=== PATIENT | female | born 1960 | race Caucasian/White ===

== ENCOUNTER 2017-12-01 17:25 | Inpatient (IN) ==
[2017-12-01] MEDS ORDERED: traMADol 50 MG TABLET PO PRN (20:48)
[2017-12-01] MEDS ORDERED: Naloxone 0.4 MG/ML INJ IVP PRN (20:48)
[2017-12-01] MEDS ORDERED: Acetaminophen 325 MG TABLET PO PRN (20:48)
[2017-12-01] MEDS ORDERED: Albuterol 2.5 MG/3 ML NEBULIZER IH PRN (20:50)
[2017-12-01] MEDS ORDERED: D5% in Water 1,000 ML IVC PRN (20:52)
[2017-12-01] MEDS ORDERED: *HR* Dextrose 50 % in Water (Syg) 50 ML SYRINGE IVP PRN (20:52)
[2017-12-01] MEDS ORDERED: Dextrose Gel 15 GM/37.5 ML TUBE PO PRN ×2 (20:52)
[2017-12-01] MEDS ORDERED: Insulin LISPRO 300 UNITS/3 ML VIAL SQ SCH (21:00)
--- NOTE | 2017-12-01 21:25 | Internal Med History&Physical ---
Date of Encounter: 12/01/17 Time of Encounter: 21:52 Assessment and Plan (1) COPD exacerbation Current visit: Yes Status: Acute Duonebs q4h, Albuterol q2hr prn, levaquin daily, prednisone daily Patient is not wheezing at time of eval and is in no form of distress CXR and CTA from referral center with no PNA or PE Continue O2 by NC, BiPAP at night Check respiratory panel, patient's symptoms dates back to 11/21 (2) Hypoxia Current visit: Yes Status: Acute as above Will need O2 qualification prior to discharge (3) Diabetes Current visit: Yes Status: Chronic hold po meds, including metformin Sliding scale insulin FS ACHS ADA diet check A1C a.m Qualifiers: Diabetes mellitus type: type 2 Diabetes mellitus ferry terminal supervisor insulin use: without ferry terminal supervisor use Diabetes mellitus complication status: with neurologic complications Diabetes mellitus complication detail: with unspecified neuropathy Qualified Code(s): E11.40 - Type 2 diabetes mellitus with diabetic neuropathy, unspecified (4) CHF (congestive heart failure) Current visit: Yes Status: Chronic euvolemic on exam Continue home dose of lasix Qualifiers: Heart failure type: diastolic Heart failure chronicity: chronic Qualified Code(s): I50.32 - Chronic diastolic (congestive) heart failure (5) Obesity Current visit: Yes Status: Chronic Qualifiers: Obesity type: unspecified obesity type Obesity classification: adult class 3 (BMI >= 40) Serious obesity comorbidity presence: with serious comorbidity Body mass index: BMI 50.0-59.9 Qualified Code(s): E66.9 - Obesity, unspecified; Z68.43 - Body mass index (BMI) 50-59.9 , adult; Z68.43 - Body mass index (BMI) 50-59.9 , adult; Z68.43 - Body mass index (BMI) 50-59.9 , adult; Z68.43 - Body mass index (BMI) 50-59.9 , adult (6) MOON (obstructive sleep apnea) Current visit: Yes Status: Chronic BiPAP at bedtime and during naps Internal Medicine - H&P: HPI Chief complaint: Shortness of breath Admitted From: Hospital to Hospital Transfer Plans for Post Hospital Care: Home History of present illness: Ms. Ahmadi is a 57 year old female with PMH of MOON on CPAP, COPD not on home O2, Morbid Obesity, DM, , CHFpEF, HTN She presented to an outside facility for complaints of shortness of breath, diaphoresis following upper respiratory tract symptoms for the past week. She had presented to her primary care physician and received a full dose of amoxicillin without any improvement. She continued to have fatigue and chills. She continued to have cough with clear sputum production. She denies fever. She presented to urgent care where she was found to be hypoxic with oxygen saturation 70% this morning. She said was sent as a when she received steroids intravenously, oxygen via mask and therapeutic dose of Lovenox for suspected pulmonary embolism. She denies gastrointestinal, urinary, or neurologic symptoms. During eval, she is sitting upright in a chair in no form of distress, O2 sat maintained at 94-95% on 3L O2. She is not in distress and is able to complete her sentences. She reports some clinical improvement, no known medication allergies. Paper charts from [facility] reviewed: Lactate 1.8 (2.0 on presentation), CBC WNL, Chem WNL, ABG with PH 7.35, PCO2 46, PO2 64, D-dimer elevated at 2017. CTA does not show Pulmonary embolism, troponin negative X3, CXR with evidence of interstitial lung changes/scarring Past Med Surg Social Fam HX - Past Medical History Medical history: CHF, COPD, diabetes, hypertension Psychiatric history: no psych history - Past Surgical History Surgical History: appendectomy - Social History Smoking Status: Current every day smoker Smokeless Tobacco Status: No Alcohol use: none Drug use: none Internal Medicine - H&P: Meds Glimepiride [Amaryl] 1 mg PO HS 04/08/15 [History] Lisinopril [Zestril] 20 mg PO DAILY 04/08/15 [History] Simvastatin [Zocor] 20 mg PO DAILY 04/08/15 [History] Sitagliptin Phos/Metformin HCl [Janumet 50-1,000 mg Tablet] 1 each PO HS [History] Acetaminophen/Butalbital/Caffe [Fioricet] 1 each PO Q6HR #15 tablet 03/01/17 [Rx ] Budesonide/Formoterol 160/4.5 [Symbicort 160/4.5] 2 puff IH BIDR 03/01/17 [ History] Dapagliflozin Propanediol [Farxiga] 5 mg PO DAILY 03/01/17 [History] Furosemide [Lasix] 10 mg PO DAILY 03/01/17 [History] Gabapentin [Neurontin] 100 mg PO TID 03/01/17 [History] Montelukast [Singulair] 10 mg PO DAILY 03/01/17 [History] PredniSONE [Deltasone] 20 mg PO DAILY #12 tablet 03/01/17 [Rx] 3 Allergy/AdvReac Type Severity Reaction Status Date / Time No Known Allergies Allergy Verified 03/01/17 14:54 All Systems PM: A 10-system review of systems was performed and is negative for pertinent findings except as documented above in the HPI. - Constitutional Constitutional: chills, fatigue, malaise, no fever(s) - EENT Eyes: no change in vision, no discharge, no pain, no photophobia Ears: no ear discharge, no ear pain, no tinnitus Nose, mouth and throat: no dysphagia, no nasal discharge, no neck pain, no sore throat - Cardiovascular Cardiovascular ROS IM: as per HPI - Respiratory Respiratory: as per HPI - Gastrointestinal Gastrointestinal: no abdominal pain, no diarrhea, no hematemesis, no hematochezia, no melena, no nausea, no vomiting - Genitourinary Genitourinary: no change in urinary stream, no dysuria, no flank pain, no hematuria - Musculoskeletal Musculoskeletal ROS IM: no numbness, no tingling - Integumentary Integumentary IM: no rash, no unusual bruising - Neurological Neurological ROS: as per HPI - Hematologic/Lymphatic Hematologic/Lymphatic: no easy bruising - Constitutional Vitals: Temp Pulse Resp BP Pulse Ox 99.5 F 94 20 110/57 92 12/01/17 20:41 12/01/17 20:41 12/01/17 20:41 12/01/17 20:41 12/01/17 20:41 General appearance: Present: A&O X 3, pleasant, no acute distress - Head Head exam: Present: atraumatic, normocephalic - Eye Eye exam: Present: PERRL, conjuntiva pink, sclera anicteric Pupils: Present: PERRL - Neck Neck exam general surgery: Present: supple, trachea midline. Absent: lymphadenopathy - Respiratory Respiratory exam: Present: CTAB. Absent: accessory muscle use, rales, rhonchi, wheezes - Cardiovascular Cardiovascular exam: Present: RRR, +S1, +S2. Absent: diastolic murmur, gallop, rubs, systolic murmur - GI/Abdominal GI/Abdominal exam: Present: normal bowel sounds, soft, no peritoneal signs. Absent: distended, tenderness - Extremities Exam Extremities exam: Present: warm, radial pulses palpable and symmetrical. Absent : calf tenderness, cyanotic, pedal edema Additional comments: chronic venous stasis changes - Neurological Exam Neurological exam: Present: alert, CN II-XII intact, oriented X3, no focal deficits. Absent: pronater drift, facial droop, speech deficit - Skin Skin exam: Present: dry, intact
[2017-12-01] MEDS: *HR* Heparin 5,000 UNIT/ML VIAL SQ SCH (22:52)
[2017-12-01] MEDS: Ipratropium/Albuterol Neb 3 ML IH SCH (23:37)
[2017-12-02] MEDS: *HR* OxyCODONE Immed Rel 5 MG TABLET PO PRN ×2 (02:26→22:49)
[2017-12-02] MEDS: Ipratropium/Albuterol Neb 3 ML IH SCH ×4 (04:22→23:18)
[2017-12-02 06:05] LABS: Basophils % 0.2 %; Hematocrit 39.3 % (35.3-44.9); Hemoglobin 12.1 g/dL (11.5-15.4); Immature Granulocytes % 0.8 % (0-4); Lymphocytes # 0.6 K/mcL (0.6-4.6); Lymphocytes % 10.3 %; Mean Corpuscular HGB Conc 30.8 g/dL (31.6-35.5); Mean Corpuscular Hemoglobin 31.2 pg (28.0-33.3); Mean Corpuscular Volume 101.3 fL (83.0-100.0); Mean Platelet Volume 10.8 fL (9.4-12.4); Monocytes # 0.5 K/mcL (0.0-1.3); Monocytes % 10.2 %; Neutrophils # 4.2 K/mcL (1.6-8.9); Platelet Count 162 K/mcL (140-400); Red Blood Count 3.88 M/mcL (3.82-4.97); Red Cell Distribution Width 15.1 % (11.5-14.5); Segmented Neutrophils % 78.5 %
[2017-12-02 06:14] LABS: Adenovirus Not Detected (Not Detect); Bordetella Pertussis Not Detected (Not Detect); Chlamydophila pneumoniae Not Detected (Not Detect); Coronavirus 229E Not Detected (Not Detect); Coronavirus HKU1 Not Detected (Not Detect); Coronavirus NL63 Not Detected (Not Detect); Coronavirus OC43 Not Detected (Not Detect); Human Metapneumovirus Not Detected (Not Detect); Human Rhinovirus/Enterovirus Not Detected (Not Detect); Influenza A Subtype 2009 H1 Not Detected (Not Detect); Influenza A Untypeable Not Detected (Not Detect); Influenza B ***DETECTED*** (Not Detect); Mycoplasma pneumoniae Not Detected (Not Detect); Parainfluenza Virus 1 Not Detected (Not Detect); Parainfluenza Virus 2 Not Detected (Not Detect); Parainfluenza Virus 3 Not Detected (Not Detect); Parainfluenza Virus 4 Not Detected (Not Detect); Respiratory Syncytial Virus Not Detected (Not Detect)
[2017-12-02 06:32] LABS: Calcium 9.1 mg/dL (8.6-10.3); Potassium 5.1 mEq/L (3.5-5.1)
[2017-12-02] MEDS: *HR* Heparin 5,000 UNIT/ML VIAL SQ SCH ×3 (06:35→21:40)
[2017-12-02] MEDS ORDERED: Insulin LISPRO 300 UNITS/3 ML VIAL SQ SCH (07:30)
[2017-12-02 08:18] LABS: Estimated Average Glucose 177 mg/dl; Hemoglobin A1C 7.8 %
[2017-12-02] MEDS: Furosemide 20 MG TABLET PO SCH (08:31)
[2017-12-02] MEDS: Gabapentin 100 MG CAPSULE PO SCH ×3 (08:32→21:40)
[2017-12-02] MEDS: predniSONE 20 MG TABLET PO SCH (08:32)
[2017-12-02] MEDS: Insulin LISPRO 300 UNITS/3 ML VIAL SQ SCH ×4 (08:33→21:43)
[2017-12-02] MEDS ORDERED: Levofloxacin 500 MG/100 ML 500 MG/100 ML BAG IVPB SCH (09:00)
--- NOTE | 2017-12-02 18:02 | Internal Med Progress Note ---
Date of Encounter: 12/02/17 Time of Encounter: 17:59 - Assessment and plan (1) COPD exacerbation Current Visit: Yes Status: Acute Assessment and plan: Improving. Down to 2 L NC supplemental O2; continue to wean as tolerated. Continue duonebs scheduled, levaquin, and prednisone. Continue BiPAP at night. (2) Hypoxia Current Visit: Yes Status: Acute Assessment and plan: Continue supplemental O2; wean as tolerated. Will likely need qualification for home O2 prior to discharge. (3) Influenza B Current Visit: Yes Status: Acute Assessment and plan: Started tamiflu today. (4) CHF (congestive heart failure) Current Visit: Yes Status: Chronic Assessment and plan: Euvolemic. Continue home medications. Qualifiers: Heart failure type: diastolic Heart failure chronicity: chronic Qualified Code(s): I50.32 - Chronic diastolic (congestive) heart failure (5) Diabetes Current Visit: Yes Status: Chronic Assessment and plan: Continue accuchecks and SSI QID AC/HS. Continue diabetic diet. Qualifiers: Diabetes mellitus type: type 2 Diabetes mellitus fpc insulin use: without fpc use Diabetes mellitus complication status: with neurologic complications Diabetes mellitus complication detail: with unspecified neuropathy Qualified Code(s): E11.40 - Type 2 diabetes mellitus with diabetic neuropathy, unspecified (6) MOON (obstructive sleep apnea) Current Visit: Yes Status: Chronic Assessment and plan: Continue BiPAP QHS. (7) Obesity Current Visit: Yes Status: Chronic Assessment and plan: Counselled on lifestyle modifications. Qualifiers: Obesity type: unspecified obesity type Obesity classification: adult class 3 (BMI >= 40) Serious obesity comorbidity presence: with serious comorbidity Body mass index: BMI 50.0-59.9 Qualified Code(s): E66.9 - Obesity, unspecified; Z68.43 - Body mass index (BMI) 50-59.9 , adult; Z68.43 - Body mass index (BMI) 50-59.9 , adult; Z68.43 - Body mass index (BMI) 50-59.9 , adult; Z68.43 - Body mass index (BMI) 50-59.9 , adult - Time Spent With Patient less than 15 minutes - Subjective Interval history: Patient had no acute events overnight. She states that breathing is better today. She denies chest pain, SOB, fever, or chills. She has no new complaints. - Constitutional Vitals: Temp Pulse Resp BP Pulse Ox 100.3 F H 88 16 100/65 94 12/02/17 14:39 12/02/17 14:39 12/02/17 16:27 12/02/17 14:39 12/02/17 16:27 General appearance: Present: cooperative, A&O X 3, pleasant, no acute distress, answers questions appropriately - Respiratory Respiratory exam: Present: CTAB. Absent: accessory muscle use, rales, rhonchi Additional comments: Mildly labored WOB, rare intermittent expiratory wheeze - Cardiovascular Cardiovascular exam: Present: RRR, +S1, +S2. Absent: diastolic murmur, gallop, rubs, systolic murmur Additional comments: No BLE edema - GI/Abdominal GI/Abdominal exam: Present: normal bowel sounds, soft. Absent: distended, hepatomegaly, mass, splenomegaly, tenderness - Psychiatric Psychiatric exam: Present: normal affect, normal mood. Absent: anxious, depressed - Skin Skin exam: Present: dry, intact, warm. Absent: cyanosis, rash Internal Medicine: Result - Labs CBC & Chem 7: 12/02/17 04:21 12/02/17 04:21 Labs: Short CBC 12/02/17 Range/Units 04:21 WBC 5.3 (4.3-11.1) K/mcL Hgb 12.1 (11.5-15.4) g/dL Hct 39.3 (35.3-44.9) % Plt Count 162 (140-400) K/mcL Neutrophils # 4.2 (1.6-8.9) K/mcL BMP 12/02/17 04:21 Sodium 134 L Potassium 5.1 Chloride 102 Carbon Dioxide 24 BUN 34 H Creatinine 1.19 Glucose 278 H Calcium 9.1 Consult Discharge Plan - Plan Referrals: Thais Bowling EVENT TECHNICIAN [Primary Care Provider] -
[2017-12-02 22:29] LABS: Bilirubin,Urine Negative (Negative); Blood,Urine Trace (Negative); Clarity,Urine Clear (Clear); Color,Urine Yellow (Yellow); Glucose,Urine (UA) >=1000 mg/dL (Normal); Ketones,Urine Negative (Negative); Leukocyte Esterase,Urine Negative (Negative); Nitrite,Urine Negative (Negative); Protein,Urine Trace mg/dL (Neg-Trace); Specific Gravity,Urine 1.029 (1.010-1.025); Urobilinogen,Urine Normal (Normal)
[2017-12-02 22:31] LABS: Hyaline Casts,Urine None Seen per lpf (None-Few); Squamous Epithelial Cell,Urine Many per lpf (None-Few); WBC,Urine 0-3 per hpf (0-3)
[2017-12-02 22:44] LABS: Bacteria,Urine Few per hpf (None-Few); Yeast,Urine Moderate per hpf (None Seen)
[2017-12-03] MEDS: Ipratropium/Albuterol Neb 3 ML IH SCH ×5 (04:17→16:38)
[2017-12-03] MEDS: *HR* Heparin 5,000 UNIT/ML VIAL SQ SCH ×3 (06:01→20:17)
[2017-12-03] MEDS: Insulin LISPRO 300 UNITS/3 ML VIAL SQ SCH ×4 (07:55→21:20)
[2017-12-03] MEDS: Furosemide 20 MG TABLET PO SCH (07:56)
[2017-12-03] MEDS: Aspirin Enteric Coated 81 MG Tablet PO SCH (07:56)
[2017-12-03] MEDS: levoFLOXacin 500 MG TABLET PO SCH (07:56)
[2017-12-03] MEDS: predniSONE 20 MG TABLET PO SCH (07:57)
[2017-12-03] MEDS: Gabapentin 100 MG CAPSULE PO SCH ×3 (07:57→20:16)
[2017-12-03] MEDS ORDERED: Nitroglycerin 0.4 MG TAB.SUBL SL PRN (11:29)
--- NOTE | 2017-12-03 13:22 | Internal Med Progress Note ---
Date of Encounter: 12/03/17 Time of Encounter: 10:50 - Assessment and plan (1) COPD exacerbation Current Visit: Yes Status: Acute Assessment and plan: Continue current management with prednisone, duonebs and O2 supplementation.dVT prophylaxis with subcutaneous heparin. (2) Chest pain Current Visit: Yes Status: Acute Assessment and plan: Chest heaviness. Worsens with deep breaths. Could be related to bronchitis and influenza. However given the patient's comorbidities, we will need to rule out ACS. Trend troponins. Get EKG. Recommend stress test as outpatient once she recovers from her episode of bronchitis and influenza. Qualifiers: Chest pain type: pleurodynia Qualified Code(s): R07.81 - Pleurodynia (3) Influenza B Current Visit: Yes Status: Acute Assessment and plan: Complete 5 day treatment course with Tamiflu (4) Hypoxia Current Visit: Yes Status: Acute Assessment and plan: Continue O2 supplementation (5) Diabetes Current Visit: Yes Status: Chronic Assessment and plan: Blood sugars remain elevated. Will place patient on long-acting insulin and addition to sliding scale coverage. Continue to monitor blood sugars closely. Qualifiers: Diabetes mellitus type: type 2 Diabetes mellitus terminal operator insulin use: without jail use Diabetes mellitus complication status: with neurologic complications Diabetes mellitus complication detail: with unspecified neuropathy Qualified Code(s): E11.40 - Type 2 diabetes mellitus with diabetic neuropathy, unspecified (6) CHF (congestive heart failure) Current Visit: Yes Status: Chronic Assessment and plan: No signs of acute congestive heart failure. On oral Lasix. Will continue Qualifiers: Heart failure type: diastolic Heart failure chronicity: chronic Qualified Code(s): I50.32 - Chronic diastolic (congestive) heart failure (7) Obesity Current Visit: Yes Status: Chronic Qualifiers: Obesity type: unspecified obesity type Obesity classification: adult class 3 (BMI >= 40) Serious obesity comorbidity presence: with serious comorbidity Body mass index: BMI 50.0-59.9 Qualified Code(s): E66.9 - Obesity, unspecified; Z68.43 - Body mass index (BMI) 50-59.9 , adult; Z68.43 - Body mass index (BMI) 50-59.9 , adult; Z68.43 - Body mass index (BMI) 50-59.9 , adult; Z68.43 - Body mass index (BMI) 50-59.9 , adult (8) MOON (obstructive sleep apnea) Current Visit: Yes Status: Chronic Assessment and plan: Use BiPAP as needed and bedtime - Time Spent With Patient Total time spent is greater than 50% in coordination of care (as documented) at patient's floor/unit and/or counseling patient: - Subjective Interval history: Patient feels weak and tired today. Reported some chest pressure with deep breaths that began this morning. Denies any nausea or vomiting. Does have cough with sputum production. No hemoptysis. Shortness of breath improving with breathing treatments. - Constitutional Vitals: Temp Pulse Resp BP Pulse Ox 99.0 F 96 22 132/85 93 12/03/17 11:07 12/03/17 11:07 12/03/17 12:20 12/03/17 11:12/03/17 12:20 General appearance: Present: cooperative, A&O X 3, pleasant, no acute distress, answers questions appropriately - Neck Neck exam general surgery: Present: supple, trachea midline. Absent: lymphadenopathy - Respiratory Respiratory exam: Present: CTAB. Absent: accessory muscle use, rales, rhonchi, wheezes - Cardiovascular Cardiovascular exam: Present: RRR, +S1, +S2. Absent: diastolic murmur, gallop, rubs, systolic murmur - GI/Abdominal GI/Abdominal exam: Present: normal bowel sounds, soft, no peritoneal signs. Absent: distended, tenderness - Extremities Exam Extremities exam: Present: warm, radial pulses palpable and symmetrical. Absent : calf tenderness, cyanotic, pedal edema - Neurological Exam Neurological exam: Present: alert, oriented X3, no focal deficits. Absent: facial droop, speech deficit Internal Medicine: Result - Labs CBC & Chem 7: 12/02/17 04:21 12/02/17 04:21 Labs: Cardiac Enzymes 12/03/17 Range/Units 11:39 Troponin I < 0.03 (< 0.04) ng/mL Urine 12/02/17 Range/Units 21:06 Urine Color Yellow (Yellow) Urine Clarity Clear (Clear) Urine pH 6.0 (5.0-8.0) pH Units Ur Specific [place] 1.029 H (1.010-1.025) Urine Protein Trace (Neg-Trace) mg/dL Urine Glucose (UA) >=1000 H (Normal) mg/dL Consult Discharge Plan - Plan Referrals: Thais Bowling, EBEN [Primary Care Provider] -
[2017-12-03] MEDS: Insulin DETEMIR 100 UNIT/ML X5UNITS SQ SCH ×2 (14:12→21:19)
--- NOTE | 2017-12-03 19:48 | Electrocardiograph Report ---
[address] [place], [place] [address] Test Date: 2017-12-03 Pat Name: Kaylie Ahmadi Department: 112 Room: [facility] Gender: F Division Supervisor: : 1960 Requested By: Miranda Norton Order Number: [id number] Reading MD: Keenan Gilbert Measurements Intervals [place] Rate: 94 P: 69 MT: 151 QRS: 89 QRSD: 154 T: 29 QT: 343 QTc: 395 Interpretive Statements SINUS RHYTHM RIGHT BUNDLE BRANCH BLOCK Electronically Signed On 12-03-2017 19:47:39 EDT by Keenan Gilbert
[2017-12-04] MEDS: Ipratropium/Albuterol Neb 3 ML IH SCH ×4 (04:18→22:29)
[2017-12-04] MEDS: *HR* Heparin 5,000 UNIT/ML VIAL SQ SCH ×3 (05:21→22:22)
[2017-12-04 07:04] LABS: Basophils % 0.2 %; Eosinophils % 0.2 %; Hematocrit 37.5 % (35.3-44.9); Hemoglobin 11.8 g/dL (11.5-15.4); Immature Granulocytes % 0.5 % (0-4); Lymphocytes % 35.2 %; Mean Corpuscular HGB Conc 31.5 g/dL (31.6-35.5); Mean Corpuscular Hemoglobin 31.1 pg (28.0-33.3); Mean Corpuscular Volume 98.9 fL (83.0-100.0); Mean Platelet Volume 10.6 fL (9.4-12.4); Monocytes # 0.5 K/mcL (0.0-1.3); Monocytes % 11.7 %; Neutrophils # 2.3 K/mcL (1.6-8.9); Platelet Count 147 K/mcL (140-400); Red Blood Count 3.79 M/mcL (3.82-4.97); Red Cell Distribution Width 14.9 % (11.5-14.5); Segmented Neutrophils % 52.2 %
[2017-12-04 07:24] LABS: Lymphocytes # 1.6 K/mcL (0.6-4.6)
[2017-12-04 07:33] LABS: BUN/Creatinine Ratio 32 (6-26); Blood Urea Nitrogen 29 mg/dL (6-20); Calcium 9.8 mg/dL (8.6-10.3); Carbon Dioxide 32 mEq/L (23-29); Chloride 98 mEq/L (98-107); Glucose 148 mg/dL (70-105); Osmolality,Calculated 289 (280-300); Potassium 4.3 mEq/L (3.5-5.1); Sodium 135 mEq/L (136-145); eGFR For African Americans > 60 (> 60); eGFR For Non-African Americans > 60 (> 60)
[2017-12-04] MEDS: predniSONE 20 MG TABLET PO SCH (08:41)
[2017-12-04] MEDS: Aspirin Enteric Coated 81 MG Tablet PO SCH (08:42)
[2017-12-04] MEDS: Insulin LISPRO 300 UNITS/3 ML VIAL SQ SCH ×4 (08:42→22:22)
[2017-12-04] MEDS: Gabapentin 100 MG CAPSULE PO SCH ×3 (08:42→20:22)
[2017-12-04] MEDS: levoFLOXacin 500 MG TABLET PO SCH (08:42)
[2017-12-04] MEDS: Furosemide 20 MG TABLET PO SCH (08:42)
[2017-12-04] MEDS: Insulin DETEMIR 100 UNIT/ML X5UNITS SQ SCH ×2 (08:43→22:22)
--- NOTE | 2017-12-04 10:13 | Internal Med Progress Note ---
Date of Encounter: 12/04/17 Time of Encounter: 09:20 - Assessment and plan (1) COPD exacerbation Current Visit: Yes Status: Acute Assessment and plan: Patient continues to feel weak. Is able to breathe better. Will continue current management with bronchodilators, O2 supplementation and steroids. Moderate risk for complications. Will consult physical therapy and social human services assistants to see if patient would qualify to go to skilled rehabilitation for recovery. Will get chest x-ray today. (2) Chest pain Current Visit: Yes Status: Acute Assessment and plan: Improved. Troponins are negative. Would recommend cardiac stress test as outpatient once she recovers from acute condition. Qualifiers: Chest pain type: pleurodynia Qualified Code(s): R07.81 - Pleurodynia (3) Influenza B Current Visit: Yes Status: Acute Assessment and plan: Continue Tamiflu. (4) Hypoxia Current Visit: Yes Status: Acute Assessment and plan: Patient does qualify for home oxygen. Prescription has been provided. (5) Diabetes Current Visit: Yes Status: Chronic Assessment and plan: Blood sugars improved this morning. Will continue to monitor blood sugars and adjust insulin regimen accordingly. They were elevated last night but insulin regimen has been increased since then. We will follow today. Qualifiers: Diabetes mellitus type: type 2 Diabetes mellitus watermelon inspector insulin use: without watermelon inspector use Diabetes mellitus complication status: with neurologic complications Diabetes mellitus complication detail: with unspecified neuropathy Qualified Code(s): E11.40 - Type 2 diabetes mellitus with diabetic neuropathy, unspecified (6) CHF (congestive heart failure) Current Visit: Yes Status: Chronic Assessment and plan: Not in acute exacerbation. Continue Lasix Qualifiers: Heart failure type: diastolic Heart failure chronicity: chronic Qualified Code(s): I50.32 - Chronic diastolic (congestive) heart failure (7) Obesity Current Visit: Yes Status: Chronic Qualifiers: Obesity type: unspecified obesity type Obesity classification: adult class 3 (BMI >= 40) Serious obesity comorbidity presence: with serious comorbidity Body mass index: BMI 50.0-59.9 Qualified Code(s): E66.9 - Obesity, unspecified; Z68.43 - Body mass index (BMI) 50-59.9 , adult; Z68.43 - Body mass index (BMI) 50-59.9 , adult; Z68.43 - Body mass index (BMI) 50-59.9 , adult; Z68.43 - Body mass index (BMI) 50-59.9 , adult (8) MOON (obstructive sleep apnea) Current Visit: Yes Status: Chronic - Time Spent With Patient Total time spent is greater than 50% in coordination of care (as documented) at patient's floor/unit and/or counseling patient: - Subjective Interval history: Patient remains weak and tired. She is able to breathe better but any exertion tends to make her short of breath and weak. Denies any chest pain. Continues to have cough with minimum sputum production. - Constitutional Vitals: Temp Pulse Resp BP Pulse Ox 98.1 F 84 18 115/67 98 12/04/17 07:45 12/04/17 07:45 12/04/17 07:45 12/04/17 07:45 12/04/17 08:56 General appearance: Present: cooperative, A&O X 3, pleasant, no acute distress, answers questions appropriately - Neck Neck exam general surgery: Present: supple, trachea midline. Absent: lymphadenopathy - Respiratory Respiratory exam: Present: decreased breath sounds (At both bases). Absent: accessory muscle use, rales, rhonchi, wheezes - Cardiovascular Cardiovascular exam: Present: RRR, +S1, +S2. Absent: diastolic murmur, gallop, rubs, systolic murmur - GI/Abdominal GI/Abdominal exam: Present: normal bowel sounds, soft, no peritoneal signs. Absent: distended, tenderness - Extremities Exam Extremities exam: Present: warm, radial pulses palpable and symmetrical. Absent : calf tenderness, cyanotic, pedal edema - Neurological Exam Neurological exam: Present: CN II-XII intact, oriented X3, no focal deficits. Absent: facial droop, speech deficit - Skin Skin exam: Present: dry, intact Internal Medicine: Result - Labs CBC & Chem 7: 12/04/17 06:43 12/04/17 06:43 Labs: Short CBC 12/04/17 Range/Units 06:43 WBC 4.4 (4.3-11.1) K/mcL Hgb 11.8 (11.5-15.4) g/dL Hct 37.5 (35.3-44.9) % Plt Count 147 (140-400) K/mcL Neutrophils # 2.3 (1.6-8.9) K/mcL BMP 12/04/17 06:43 Sodium 135 L Potassium 4.3 Chloride 98 Carbon Dioxide 32 H BUN 29 H Creatinine 0.92 Glucose 148 H Calcium 9.8 Cardiac Enzymes 12/03/17 12/03/17 Range/Units 11:39 17:12 Troponin I < 0.03 < 0.03 (< 0.04) ng/mL Consult Discharge Plan - Plan Referrals: Thais Bowling CNP [Primary Care Provider] -
[2017-12-04] MEDS ORDERED: Insulin Human Regular 10 UNIT in 0.9 % Sodium Chloride 10 ML IV ONE (18:59)
[2017-12-04] MEDS: *HR* OxyCODONE Immed Rel 5 MG TABLET PO PRN (20:33)
[2017-12-05] MEDS: Ipratropium/Albuterol Neb 3 ML IH SCH ×2 (04:03→10:37)
[2017-12-05] MEDS: *HR* Heparin 5,000 UNIT/ML VIAL SQ SCH (06:22)
[2017-12-05] MEDS ORDERED: Insulin LISPRO 300 UNITS/3 ML VIAL SQ SCH ×2 (07:58)
[2017-12-05] MEDS ORDERED: predniSONE 20 MG TABLET PO SCH (07:59)
[2017-12-05] MEDS ORDERED: Insulin DETEMIR 100 UNIT/ML X5UNITS SQ SCH (08:00)
[2017-12-05] MEDS: Aspirin Enteric Coated 81 MG Tablet PO SCH (08:53)
[2017-12-05] MEDS: levoFLOXacin 500 MG TABLET PO SCH (08:53)
[2017-12-05] MEDS: Gabapentin 100 MG CAPSULE PO SCH (08:53)
[2017-12-05] MEDS: Furosemide 20 MG TABLET PO SCH (08:53)
[2017-12-05 10:57] VITALS: BP 108/65
--- NOTE | 2017-12-05 12:45 | Discharge Summary ---
- NOTES TO OUTPATIENT PROVIDER Notes to Outpatient Provider: Patient admitted with bronchitis, influenza in COPD exacerbation. Requiring home oxygen. Prescribed 2 L O2 supplementation. Orders not resulted at time of discharge: Pending orders 12/03/17 17:17 Sputum Culture [Culture,Sputum with Gram Stain] [] Stat 12/04/17 14:06 Culture,Urine [] Routine Date of Encounter: 12/05/17 Time of Encounter: 12:43 - Discharge Diagnosis (1) COPD exacerbation Priority: Primary Status: Acute (2) Chest pain Priority: Secondary Status: Acute Qualifiers: Chest pain type: pleurodynia Qualified Code(s): R07.81 - Pleurodynia (3) Influenza B Priority: Secondary Status: Acute (4) Hypoxia Priority: Secondary Status: Acute (5) Diabetes Priority: Secondary Status: Chronic Qualifiers: Diabetes mellitus type: type 2 Diabetes mellitus local intermodal truck driver insulin use: without local intermodal truck driver use Diabetes mellitus complication status: with neurologic complications Diabetes mellitus complication detail: with unspecified neuropathy Qualified Code(s): E11.40 - Type 2 diabetes mellitus with diabetic neuropathy, unspecified (6) CHF (congestive heart failure) Priority: Secondary Status: Chronic Qualifiers: Heart failure type: diastolic Heart failure chronicity: chronic Qualified Code(s): I50.32 - Chronic diastolic (congestive) heart failure (7) Obesity Priority: Secondary Status: Chronic Qualifiers: Obesity type: unspecified obesity type Obesity classification: adult class 3 (BMI >= 40) Serious obesity comorbidity presence: with serious comorbidity Body mass index: BMI 50.0-59.9 Qualified Code(s): E66.9 - Obesity, unspecified; Z68.43 - Body mass index (BMI) 50-59.9 , adult; Z68.43 - Body mass index (BMI) 50-59.9 , adult; Z68.43 - Body mass index (BMI) 50-59.9 , adult; Z68.43 - Body mass index (BMI) 50-59.9 , adult (8) MOON (obstructive sleep apnea) Priority: Secondary Status: Chronic Hospital course: Ms. Ahmadi is a 57 year old female patient with a history of COPD, obstructive sleep apnea on CPAP, morbid obesity, diabetes, CHF with preserved ejection fraction, hypertension was hospitalized here with shortness of breath related to COPD exacerbation and bronchitis. She was positive for influenza. She was started on treatment for these conditions with O2 supplementation, steroids, bronchodilators and she also received Tamiflu. Her symptoms have improved since then and she is now feeling much better and feels well enough to go home. She is still requiring supplemental oxygen and would benefit from home oxygen which has been prescribed for her. She we will be discharged today and will complete short course of prednisone therapy along with Levaquin and Tamiflu. She will follow up with her primary care provider for further management. Discharge discussed with: patient - Time Spent with Patient Total time spent providing and/or coordinating discharge services: Greater than 30 minutes (35 min) - Discharge Medications Prescriptions: Furosemide [Lasix] 10 mg PO DAILY #30 tablet Insulin DETEMIR [Levemir Flextouch] 10 unit SQ BID #1 insuln.pen levoFLOXacin [Levaquin] 500 mg PO DAILY #4 tablet Oseltamivir [Tamiflu] 75 mg PO BID #4 capsule predniSONE [PredniSONE] 40 mg PO DAILY #4 tablet Simvastatin [Zocor] 20 mg PO DAILY #30 tablet Home Medications: Aspirin 81 mg PO DAILY 12/01/17 [History] Budesonide/Formoterol 80/4.5 [Symbicort 80/4.5] 0 gm IH BIDR 12/01/17 [History] Dapagliflozin Propanediol [Farxiga] 5 mg PO DAILY 12/01/17 [History] Gabapentin [Neurontin] 100 mg PO TID 12/01/17 [History] Glimepiride [Amaryl] 4 mg PO BID 12/01/17 [History] Lisinopril [Zestril] 20 mg PO DAILY 12/01/17 [History] Montelukast [Singulair] 10 mg PO DAILY 12/01/17 [History] Simvastatin [Zocor] 40 mg PO HS 12/01/17 [History] Sitagliptin Phos/Metformin HCl [Janumet 50-1,000 mg Tablet] 1 each PO BID [History] Tiotropium [Spiriva] 18 mcg IH 0700 12/01/17 [History] hydroCHLOROthiazide [Hydrochlorothiazide] 25 mg PO DAILY 12/01/17 [History] rOPINIRole [Requip] 3 mg PO HS 12/01/17 [History] Albuterol Sulfate [Proair Hfa] 2 puff IH Q4H PRN 12/02/17 [History] Fluticasone Propionate Nasal [Flonase] 2 spr NS DAILY 12/02/17 [History] Furosemide [Lasix] 10 mg PO DAILY #30 tablet 12/05/17 [Rx] Insulin DETEMIR [Levemir Flextouch] 10 unit SQ BID #1 insuln.pen 12/05/17 [Rx] Oseltamivir [Tamiflu] 75 mg PO BID #4 capsule 12/05/17 [Rx] Simvastatin [Zocor] 20 mg PO DAILY #30 tablet 12/05/17 [Rx] levoFLOXacin [Levaquin] 500 mg PO DAILY #4 tablet 12/05/17 [Rx] predniSONE [PredniSONE] 40 mg PO DAILY #4 tablet 12/05/17 [Rx] Allergies/Adverse Reactions: 3 Allergy/AdvReac Type Severity Reaction Status Date / Time No Known Allergies Allergy Verified 03/01/17 14:54 Date of admission: 12/02/17 12:56 Primary care physician: ASHLEY Haque Consults: 12/01/17 20:50 Consult to Nurse Navigator [CONS] Routine Comment: 12/04/17 09:07 Consult to Physical Therapy [CONS] Routine Comment: Evaluate, develop and implement POC Reason for Consult: weakness; discharge Does patient have active BEDREST order?: No Is patient medically & hemodynamically stable?: Yes Discharging clinician: Miranda Norton Anticipated date of discharge: 12/05/17 - Constitutional Vitals: Temp Pulse Resp BP Pulse Ox 97.6 F 74 15 108/65 97 12/05/17 10:49 12/05/17 10:49 12/05/17 10:49 12/05/17 10:49 12/05/17 12:17 General appearance: Present: cooperative, A&O X 3, pleasant, no acute distress, answers questions appropriately - Neck Neck exam general surgery: Present: supple, trachea midline. Absent: lymphadenopathy - Respiratory Respiratory exam: Present: CTAB. Absent: accessory muscle use, rales, rhonchi, wheezes - Cardiovascular Cardiovascular exam: Present: RRR, +S1, +S2. Absent: diastolic murmur, gallop, rubs, systolic murmur - GI/Abdominal GI/Abdominal exam: Present: normal bowel sounds, soft, no peritoneal signs. Absent: distended, tenderness - Extremities Exam Extremities exam: Present: warm, radial pulses palpable and symmetrical. Absent : calf tenderness, cyanotic, pedal edema - Neurological Exam Neurological exam: Present: CN II-XII intact, oriented X3, no focal deficits. Absent: facial droop, speech deficit - Skin Skin exam: Present: dry, intact - Patient Status Disposition: Home, Self-Care Condition: Good Overall status at discharge: patient is progressing back to baseline - Discharge Instructions Instructions: Chronic Obstructive Pulmonary Disease (DC), Chest Pain (DC), Diabetes Mellitus Type 2 in Adults (DC) Follow Up With: Thais Bowling RESIDENTIAL MANAGER [Primary Care Provider] - (in 1-2 weeks) - Diet and Activity Activity: wear oxygen at all times Diet: diabetic diet, low fat, low cholesterol, low salt diet
== END 2017-12-05 14:47 | disposition home or self-care (01) | DRG 191 ==
LOC: 2ANU → SUATTDRO 12-02 12:56
PROVIDERS: ADMIT Hospitalist; ATTEND Internal Medicine